=== PATIENT | male | born 1960 | race Caucasian/White ===

== ENCOUNTER 2022-04-02 15:50 | Inpatient (IN) | payer OTHER ==
[~2022-04-02] VITALS: Ht 180.3 cm; Wt 86.6 kg
[2022-04-02] MEDS ORDERED: BENZOCAINE/MENTHOL LOZENGE PO PRN (20:15)
[2022-04-02] MEDS ORDERED: POLYETHYLENE GLYCOL 3350 17 GM PACKET PO PRN (20:15)
[2022-04-02] MEDS: MELATONIN 5 MG TABLET PO SCH (21:00)
[2022-04-02] MEDS: SIMVASTATIN 20 MG TABLET PO SCH (22:12)
[2022-04-02] MEDS: ETHYL ALCOHOL 62% ANTISEPTIC NASAL SANITIZER 0.6 ML AMPUL NASAL SCH (22:12)
[2022-04-02] MEDS ORDERED: [UNRECOGNIZED DRUG - OTHER] IH PRN ×2 (22:15→22:45)
[2022-04-02 22:19] VITALS: BP 154/89
[2022-04-02] MEDS: ENOXAPARIN SODIUM 40 MG/0.4 ML PF SYRINGE SQ SCH (22:19)
[2022-04-02] MEDS: SENNA 187 MG TABLET PO SCH (22:19)
[2022-04-02] MEDS: MORPHINE SULFATE 15 MG IR TABLET PO PRN (22:19)
[2022-04-02] MEDS: DOCUSATE SODIUM 100 MG CAPSULE PO SCH (22:19)
[2022-04-02] MEDS: METHOCARBAMOL 500 MG TABLET PO SCH (22:19)
[2022-04-03] MEDS ORDERED: LISI-894 PO (06:21)
[2022-04-03] MEDS ORDERED: SIMV-260 PO (06:21)
[2022-04-03 07:14] LABS: BASOPHILS % (AUTO) 0.3 % (0.0-2.0); HEMATOCRIT 26.4 % (41-53); HEMOGLOBIN 8.7 g/dL (13.5-17.5); LYMPHOCYTES # (AUTO) 1.3 K/uL (1.0-4.8); LYMPHOCYTES % (AUTO) 11.8 % (22.0-44.0); MEAN CORPUSCULAR HEMOGLOBIN 30.4 pg (26.0-34.0); MEAN CORPUSCULAR HGB CONC 33.1 G/dL (31.0-37.0); MEAN CORPUSCULAR VOLUME 92 fL (80-100); MONOCYTES # (AUTO) 0.6 K/uL (0.1-1.0); MONOCYTES % (AUTO) 5.3 % (2.0-9.0); NEUTROPHILS # (AUTO) 8.3 K/uL (1.8-7.7); NEUTROPHILS % (AUTO) 78.6 % (40.0-70.0); PLATELET COUNT (AUTO) 560 K/uL (150-450); RED BLOOD CELL COUNT(AUTO) 2.87 MIL/uL (4.50-5.90); RED CELL DISTRIBUTION WIDTH 15.8 % (11.5-14.5)
[2022-04-03 07:43] LABS: ALANINE AMINOTRANSFERASE 102 U/L (12-78); ALKALINE PHOSPHATASE 235 U/L (46-116); ANION GAP 8 mmol/L (8-16); ASPARTATE AMINOTRANSFERASE 39 U/L (15-37); BILIRUBIN,TOTAL 0.4 mg/dL (0.1-1.0); CALCIUM, TOTAL 8.6 mg/dL (8.8-10.5); CARBON DIOXIDE 30 mmol/L (22-29); CHLORIDE 104 mmol/L (98-107); CREATININE 0.54 mg/dL (0.60-1.30); GLOMERULAR FILTR. RATE CALC > 60 mL/min (>60); GLUCOSE,RANDOM 105 mg/dL (70-110); POTASSIUM 3.8 mmol/L (3.5-5.1); SODIUM SERUM 142 mmol/L (136-145); TOTAL PROTEIN, SERUM 5.8 g/dL (6.4-8.2); UREA NITROGEN, BLOOD 12 mg/dL (7-18)
[2022-04-03 08:59] VITALS: BP 140/78
[2022-04-03] MEDS: MOXIFLOXACIN HCL 400 MG TABLET PO SCH (09:41)
[2022-04-03] MEDS: MORPHINE SULFATE 15 MG IR TABLET PO PRN ×2 (09:42→20:37)
[2022-04-03] MEDS: METHOCARBAMOL 500 MG TABLET PO SCH ×4 (09:42→20:33)
[2022-04-03] MEDS: DOCUSATE SODIUM 100 MG CAPSULE PO SCH ×2 (09:42→20:33)
[2022-04-03] MEDS: ETHYL ALCOHOL 62% ANTISEPTIC NASAL SANITIZER 0.6 ML AMPUL NASAL SCH ×2 (09:42→20:34)
[2022-04-03] MEDS: ENOXAPARIN SODIUM 40 MG/0.4 ML PF SYRINGE SQ SCH ×2 (09:43→20:34)
[2022-04-03] MEDS: COLD CREAM, SKIN EMOLLIENT 170 GM JAR TP SCH ×2 (09:43→20:34)
[2022-04-03] MEDS: LIDOCAINE 5% TRANSDERMAL PATCH TD SCH (09:44)
[2022-04-03] MEDS ORDERED: PNEUMOCOCCAL VACCINE POLYVALENT 0.5 ML VIAL [PPSV23] IM. ONE (17:15)
[2022-04-03 20:05] VITALS: BP 140/77
[2022-04-03] MEDS: SENNA 187 MG TABLET PO SCH (20:33)
[2022-04-03] MEDS: SIMVASTATIN 20 MG TABLET PO SCH (20:33)
[2022-04-03] MEDS: -LIDODERM PATCH NOTE- MISC SCH (20:39)
[2022-04-03] MEDS: MELATONIN 5 MG TABLET PO SCH (21:00)
[2022-04-04] MEDS: FAMOTIDINE 20 MG TABLET PO SCH (06:29)
[2022-04-04 08:30] VITALS: BP 137/81
[2022-04-04] MEDS: MOXIFLOXACIN HCL 400 MG TABLET PO SCH (09:13)
[2022-04-04] MEDS: ETHYL ALCOHOL 62% ANTISEPTIC NASAL SANITIZER 0.6 ML AMPUL NASAL SCH ×2 (09:13→20:08)
[2022-04-04] MEDS: DOCUSATE SODIUM 100 MG CAPSULE PO SCH ×2 (09:14→20:08)
[2022-04-04] MEDS: METHOCARBAMOL 500 MG TABLET PO SCH ×4 (09:15→20:09)
[2022-04-04] MEDS: ENOXAPARIN SODIUM 40 MG/0.4 ML PF SYRINGE SQ SCH (09:16)
[2022-04-04] MEDS: COLD CREAM, SKIN EMOLLIENT 170 GM JAR TP SCH ×2 (09:17→20:10)
[2022-04-04] MEDS: LIDOCAINE 5% TRANSDERMAL PATCH TD SCH (09:17)
[2022-04-04] MEDS: LISINOPRIL 10 MG TABLET PO SCH (15:53)
[2022-04-04] MEDS: FERROUS SULFATE 325 MG EC TABLET PO SCH (16:01)
[2022-04-04 20:09] VITALS: BP 140/80
[2022-04-04] MEDS: APIXABAN 5 MG TABLET PO SCH (20:09)
[2022-04-04] MEDS: SENNA 187 MG TABLET PO SCH (20:09)
[2022-04-04] MEDS: MORPHINE SULFATE 15 MG IR TABLET PO PRN (20:09)
[2022-04-04] MEDS: SIMVASTATIN 20 MG TABLET PO SCH (20:09)
[2022-04-04] MEDS: OXYGEN THERAPY IH SCH (20:15)
[2022-04-04] MEDS: [UNRECOGNIZED DRUG - OTHER] IH PRN (20:22)
[2022-04-04] MEDS: -LIDODERM PATCH NOTE- MISC SCH (21:23)
[2022-04-04] MEDS: MELATONIN 5 MG TABLET PO PRN (23:59)
[2022-04-05] MEDS: FAMOTIDINE 20 MG TABLET PO SCH (06:09)
[2022-04-05 06:51] LABS: BASOPHILS % (AUTO) 0.8 % (0.0-2.0); HEMATOCRIT 32.5 % (41-53); HEMOGLOBIN 10.5 g/dL (13.5-17.5); LYMPHOCYTES # (AUTO) 1.5 K/uL (1.0-4.8); LYMPHOCYTES % (AUTO) 16.8 % (22.0-44.0); MEAN CORPUSCULAR HEMOGLOBIN 29.7 pg (26.0-34.0); MEAN CORPUSCULAR HGB CONC 32.1 G/dL (31.0-37.0); MEAN CORPUSCULAR VOLUME 93 fL (80-100); MONOCYTES # (AUTO) 0.6 K/uL (0.1-1.0); MONOCYTES % (AUTO) 6.6 % (2.0-9.0); NEUTROPHILS # (AUTO) 6.7 K/uL (1.8-7.7); NEUTROPHILS % (AUTO) 72.8 % (40.0-70.0); PLATELET COUNT (AUTO) 640 K/uL (150-450); RED BLOOD CELL COUNT(AUTO) 3.52 MIL/uL (4.50-5.90); RED CELL DISTRIBUTION WIDTH 16.2 % (11.5-14.5)
[2022-04-05 07:05] LABS: INR 1.1 (0.9-1.1); PROTHROMBIN TIME 11.3 SEC (9.4-11.6)
[2022-04-05 07:12] LABS: ALANINE AMINOTRANSFERASE 89 U/L (12-78); ALBUMIN 2.6 g/dL (3.4-5.0); ALKALINE PHOSPHATASE 279 U/L (46-116); ANION GAP 3 mmol/L (8-16); ASPARTATE AMINOTRANSFERASE 30 U/L (15-37); BILIRUBIN,TOTAL 0.3 mg/dL (0.1-1.0); CARBON DIOXIDE 34 mmol/L (22-29); CHLORIDE 105 mmol/L (98-107); CREATININE 0.57 mg/dL (0.60-1.30); GLUCOSE,RANDOM 106 mg/dL (70-110); POTASSIUM 4.3 mmol/L (3.5-5.1); SODIUM SERUM 142 mmol/L (136-145); TOTAL PROTEIN, SERUM 6.7 g/dL (6.4-8.2); UREA NITROGEN, BLOOD 7 mg/dL (7-18)
[2022-04-05 07:15] LABS: GLOMERULAR FILTR. RATE CALC > 60 mL/min (>60)
[2022-04-05 08:10] VITALS: BP 128/76
[2022-04-05] MEDS: METHOCARBAMOL 500 MG TABLET PO SCH ×4 (08:38→20:10)
[2022-04-05] MEDS: MULTIVITAMINS WITH MINERALS, THERAPEUTIC TABLET PO SCH (08:38)
[2022-04-05] MEDS: LIDOCAINE 5% TRANSDERMAL PATCH TD SCH (08:38)
[2022-04-05] MEDS: MOXIFLOXACIN HCL 400 MG TABLET PO SCH (08:38)
[2022-04-05] MEDS: ETHYL ALCOHOL 62% ANTISEPTIC NASAL SANITIZER 0.6 ML AMPUL NASAL SCH ×2 (08:38→20:11)
[2022-04-05] MEDS: FERROUS SULFATE 325 MG EC TABLET PO SCH ×2 (08:38→17:35)
[2022-04-05] MEDS: DOCUSATE SODIUM 100 MG CAPSULE PO SCH ×2 (08:39→20:10)
[2022-04-05] MEDS: COLD CREAM, SKIN EMOLLIENT 170 GM JAR TP SCH ×2 (08:39→20:11)
[2022-04-05] MEDS: LISINOPRIL 10 MG TABLET PO SCH (08:39)
[2022-04-05] MEDS: APIXABAN 5 MG TABLET PO SCH ×2 (08:39→20:10)
[2022-04-05] MEDS: OXYGEN THERAPY IH SCH ×2 (08:40→20:19)
[2022-04-05] MEDS: ACETAMINOPHEN 325 MG TABLET PO PRN (08:44)
[2022-04-05] MEDS: LORATADINE 10 MG TABLET PO SCH (12:07)
[2022-04-05] MEDS: SENNA 187 MG TABLET PO SCH (20:10)
[2022-04-05] MEDS: SIMVASTATIN 20 MG TABLET PO SCH (20:10)
[2022-04-05 20:11] VITALS: BP 144/74
[2022-04-05] MEDS: MORPHINE SULFATE 15 MG IR TABLET PO PRN (20:11)
[2022-04-05] MEDS: [UNRECOGNIZED DRUG - OTHER] IH PRN (20:11)
[2022-04-05] MEDS: -LIDODERM PATCH NOTE- MISC SCH (20:11)
[2022-04-05] MEDS: MELATONIN 5 MG TABLET PO PRN (22:31)
[2022-04-06] MEDS: FAMOTIDINE 20 MG TABLET PO SCH (07:00)
[2022-04-06 08:05] VITALS: BP 129/77
[2022-04-06] MEDS: COLD CREAM, SKIN EMOLLIENT 170 GM JAR TP SCH ×2 (08:57→20:53)
[2022-04-06] MEDS: METHOCARBAMOL 500 MG TABLET PO SCH ×4 (08:58→20:35)
[2022-04-06] MEDS: LISINOPRIL 10 MG TABLET PO SCH (08:59)
[2022-04-06] MEDS: MULTIVITAMINS WITH MINERALS, THERAPEUTIC TABLET PO SCH (08:59)
[2022-04-06] MEDS: DOCUSATE SODIUM 100 MG CAPSULE PO SCH ×2 (08:59→20:35)
[2022-04-06] MEDS: FERROUS SULFATE 325 MG EC TABLET PO SCH ×2 (08:59→16:09)
[2022-04-06] MEDS: LORATADINE 10 MG TABLET PO SCH (08:59)
[2022-04-06] MEDS: MOXIFLOXACIN HCL 400 MG TABLET PO SCH (08:59)
[2022-04-06] MEDS: APIXABAN 5 MG TABLET PO SCH ×2 (08:59→20:36)
[2022-04-06] MEDS: LIDOCAINE 5% TRANSDERMAL PATCH TD SCH (09:00)
[2022-04-06] MEDS: ETHYL ALCOHOL 62% ANTISEPTIC NASAL SANITIZER 0.6 ML AMPUL NASAL SCH ×2 (09:01→20:36)
[2022-04-06] MEDS: OXYGEN THERAPY IH SCH ×2 (09:02→20:51)
[2022-04-06] MEDS: MORPHINE SULFATE 15 MG IR TABLET PO PRN ×2 (09:21→20:36)
[2022-04-06] MEDS: SENNA 187 MG TABLET PO SCH (20:35)
[2022-04-06] MEDS: SIMVASTATIN 20 MG TABLET PO SCH (20:35)
[2022-04-06 20:36] VITALS: BP 117/69
[2022-04-06] MEDS: -LIDODERM PATCH NOTE- MISC SCH (20:40)
[2022-04-06] MEDS: MELATONIN 5 MG TABLET PO PRN (23:06)
[2022-04-07] MEDS: MORPHINE SULFATE 15 MG IR TABLET PO PRN ×2 (03:11→20:02)
[2022-04-07] MEDS: FAMOTIDINE 20 MG TABLET PO SCH (06:16)
[2022-04-07 07:35] VITALS: BP 120/76
[2022-04-07] MEDS: OXYGEN THERAPY IH SCH ×2 (08:00→20:01)
[2022-04-07] MEDS: MOXIFLOXACIN HCL 400 MG TABLET PO SCH (08:29)
[2022-04-07] MEDS: FERROUS SULFATE 325 MG EC TABLET PO SCH ×2 (08:29→16:29)
[2022-04-07] MEDS: DOCUSATE SODIUM 100 MG CAPSULE PO SCH ×2 (08:29→20:03)
[2022-04-07] MEDS: LORATADINE 10 MG TABLET PO SCH (08:29)
[2022-04-07] MEDS: ETHYL ALCOHOL 62% ANTISEPTIC NASAL SANITIZER 0.6 ML AMPUL NASAL SCH ×2 (08:29→20:03)
[2022-04-07] MEDS: APIXABAN 5 MG TABLET PO SCH ×2 (08:30→20:04)
[2022-04-07] MEDS: MULTIVITAMINS WITH MINERALS, THERAPEUTIC TABLET PO SCH (08:30)
[2022-04-07] MEDS: LISINOPRIL 10 MG TABLET PO SCH (08:30)
[2022-04-07] MEDS: METHOCARBAMOL 500 MG TABLET PO SCH ×4 (08:30→20:03)
[2022-04-07] MEDS: COLD CREAM, SKIN EMOLLIENT 170 GM JAR TP SCH ×2 (08:31→20:03)
[2022-04-07] MEDS: LIDOCAINE 5% TRANSDERMAL PATCH TD SCH (08:31)
[2022-04-07 20:02] VITALS: BP 144/76
[2022-04-07] MEDS: SIMVASTATIN 20 MG TABLET PO SCH (20:03)
[2022-04-07] MEDS: SENNA 187 MG TABLET PO SCH (20:03)
[2022-04-07] MEDS: -LIDODERM PATCH NOTE- MISC SCH (20:04)
[2022-04-07] MEDS: MELATONIN 5 MG TABLET PO PRN (23:02)
[2022-04-08] MEDS ORDERED: METH-659 PO (01:14)
[2022-04-08] MEDS ORDERED: DOCU-385 PO (01:14)
[2022-04-08] MEDS ORDERED: APIX2.5T PO (01:14)
[2022-04-08] MEDS ORDERED: FERR325T27 PO (01:14)
[2022-04-08] MEDS ORDERED: LORA10TA7 PO (01:14)
[2022-04-08] MEDS ORDERED: [UNRECOGNIZED DRUG - CODE] PO (01:14)
[2022-04-08] MEDS ORDERED: MULT-1133 PO (01:14)
[2022-04-08] MEDS ORDERED: FAMO20 PO (01:14)
[2022-04-08] MEDS: FAMOTIDINE 20 MG TABLET PO SCH (06:18)
[2022-04-08] MEDS: FERROUS SULFATE 325 MG EC TABLET PO SCH ×2 (07:59→15:51)
[2022-04-08] MEDS: LORATADINE 10 MG TABLET PO SCH (08:00)
[2022-04-08] MEDS: METHOCARBAMOL 500 MG TABLET PO SCH ×4 (08:00→20:48)
[2022-04-08] MEDS: LISINOPRIL 10 MG TABLET PO SCH (08:00)
[2022-04-08] MEDS: APIXABAN 5 MG TABLET PO SCH ×2 (08:00→20:49)
[2022-04-08] MEDS: MOXIFLOXACIN HCL 400 MG TABLET PO SCH (08:00)
[2022-04-08] MEDS: DOCUSATE SODIUM 100 MG CAPSULE PO SCH ×2 (08:00→20:51)
[2022-04-08] MEDS: MULTIVITAMINS WITH MINERALS, THERAPEUTIC TABLET PO SCH (08:00)
[2022-04-08] MEDS: LIDOCAINE 5% TRANSDERMAL PATCH TD SCH (08:01)
[2022-04-08] MEDS: ETHYL ALCOHOL 62% ANTISEPTIC NASAL SANITIZER 0.6 ML AMPUL NASAL SCH ×2 (08:01→20:47)
[2022-04-08] MEDS: COLD CREAM, SKIN EMOLLIENT 170 GM JAR TP SCH ×2 (08:05→20:51)
[2022-04-08] MEDS: OXYGEN THERAPY IH SCH ×2 (08:05→20:46)
[2022-04-08 08:30] VITALS: BP 135/77
[2022-04-08] MEDS: SENNA 187 MG TABLET PO SCH (20:47)
[2022-04-08] MEDS: SIMVASTATIN 20 MG TABLET PO SCH (20:50)
[2022-04-08 21:02] VITALS: BP 123/77
[2022-04-08] MEDS: MORPHINE SULFATE 15 MG IR TABLET PO PRN (21:02)
[2022-04-08] MEDS: -LIDODERM PATCH NOTE- MISC SCH (21:11)
[2022-04-08] MEDS: MELATONIN 5 MG TABLET PO PRN (23:03)
[2022-04-09] MEDS: FAMOTIDINE 20 MG TABLET PO SCH (06:52)
[2022-04-09 07:45] VITALS: BP 136/75
[2022-04-09] MEDS: OXYGEN THERAPY IH SCH ×2 (08:00→20:00)
[2022-04-09] MEDS: FERROUS SULFATE 325 MG EC TABLET PO SCH ×2 (08:22→16:23)
[2022-04-09] MEDS: MOXIFLOXACIN HCL 400 MG TABLET PO SCH (08:23)
[2022-04-09] MEDS: ETHYL ALCOHOL 62% ANTISEPTIC NASAL SANITIZER 0.6 ML AMPUL NASAL SCH ×2 (08:23→20:53)
[2022-04-09] MEDS: LORATADINE 10 MG TABLET PO SCH (08:23)
[2022-04-09] MEDS: DOCUSATE SODIUM 100 MG CAPSULE PO SCH ×2 (08:24→20:54)
[2022-04-09] MEDS: ACETAMINOPHEN 325 MG TABLET PO PRN ×2 (08:24→20:57)
[2022-04-09] MEDS: MULTIVITAMINS WITH MINERALS, THERAPEUTIC TABLET PO SCH (08:25)
[2022-04-09] MEDS: METHOCARBAMOL 500 MG TABLET PO SCH ×4 (08:25→20:53)
[2022-04-09] MEDS: LISINOPRIL 10 MG TABLET PO SCH (08:25)
[2022-04-09] MEDS: LIDOCAINE 5% TRANSDERMAL PATCH TD SCH (08:26)
[2022-04-09] MEDS: COLD CREAM, SKIN EMOLLIENT 170 GM JAR TP SCH ×2 (08:26→20:55)
[2022-04-09] MEDS: APIXABAN 5 MG TABLET PO SCH ×2 (08:26→20:54)
[2022-04-09] MEDS ORDERED: METH-811 PO (09:36)
[2022-04-09] MEDS ORDERED: DOCU-385 PO (09:36)
[2022-04-09] MEDS ORDERED: MULT-1239 PO (09:36)
[2022-04-09] MEDS ORDERED: LISI-893 PO (09:36)
[2022-04-09] MEDS ORDERED: FERR325T27 PO (09:36)
[2022-04-09] MEDS ORDERED: -Lidoderm Patch Note- MISC (09:36)
[2022-04-09] MEDS ORDERED: SENN-187 PO (09:36)
[2022-04-09] MEDS ORDERED: FOLI-130 IH (09:36)
[2022-04-09] MEDS ORDERED: MOXI400T33 PO (09:36)
[2022-04-09] MEDS ORDERED: SIMV-43 PO (09:36)
[2022-04-09] MEDS ORDERED: FAMO20 PO (09:36)
[2022-04-09] MEDS ORDERED: ACET325T51 PO (09:36)
[2022-04-09] MEDS ORDERED: APIX5TAB PO (09:36)
[2022-04-09] MEDS ORDERED: MORP15T PO (09:36)
[2022-04-09] MEDS ORDERED: LORA10TA60 PO (09:36)
[2022-04-09] MEDS: SODIUM CHLORIDE 0.65% 44 ML NASAL SPRAY NASAL SCH ×2 (16:23→21:20)
[2022-04-09] MEDS: SENNA 187 MG TABLET PO SCH (20:53)
[2022-04-09] MEDS: SIMVASTATIN 20 MG TABLET PO SCH (20:54)
[2022-04-09 20:57] VITALS: BP 140/81
[2022-04-09] MEDS: MELATONIN 5 MG TABLET PO PRN (20:58)
[2022-04-09] MEDS: -LIDODERM PATCH NOTE- MISC SCH (21:23)
[2022-04-10] MEDS: FAMOTIDINE 20 MG TABLET PO SCH (06:42)
[2022-04-10 08:01] VITALS: BP 120/80
[2022-04-10] MEDS: METHOCARBAMOL 500 MG TABLET PO SCH (08:10)
[2022-04-10] MEDS: APIXABAN 5 MG TABLET PO SCH (08:10)
[2022-04-10] MEDS: MOXIFLOXACIN HCL 400 MG TABLET PO SCH (08:10)
[2022-04-10] MEDS: DOCUSATE SODIUM 100 MG CAPSULE PO SCH (08:10)
[2022-04-10] MEDS: MULTIVITAMINS WITH MINERALS, THERAPEUTIC TABLET PO SCH (08:11)
[2022-04-10] MEDS: FERROUS SULFATE 325 MG EC TABLET PO SCH (08:11)
[2022-04-10] MEDS: LISINOPRIL 10 MG TABLET PO SCH (08:11)
[2022-04-10] MEDS: ETHYL ALCOHOL 62% ANTISEPTIC NASAL SANITIZER 0.6 ML AMPUL NASAL SCH (08:11)
[2022-04-10] MEDS: LORATADINE 10 MG TABLET PO SCH (08:15)
[2022-04-10] MEDS: LIDOCAINE 5% TRANSDERMAL PATCH TD SCH (08:16)
[2022-04-10] MEDS: OXYGEN THERAPY IH SCH (08:25)
[2022-04-10] MEDS: COLD CREAM, SKIN EMOLLIENT 170 GM JAR TP SCH (08:27)
[2022-04-10] MEDS: SODIUM CHLORIDE 0.65% 44 ML NASAL SPRAY NASAL SCH (08:27)
[2022-04-10 08:47] LABS: BASOPHILS % (AUTO) 0.9 % (0.0-2.0); EOSINOPHILS % (AUTO) 2.1 % (1.0-6.0); HEMATOCRIT 33.1 % (41-53); HEMOGLOBIN 10.9 g/dL (13.5-17.5); LYMPHOCYTES # (AUTO) 1.1 K/uL (1.0-4.8); LYMPHOCYTES % (AUTO) 14.3 % (22.0-44.0); MEAN CORPUSCULAR HEMOGLOBIN 30.5 pg (26.0-34.0); MEAN CORPUSCULAR HGB CONC 32.8 G/dL (31.0-37.0); MEAN CORPUSCULAR VOLUME 93 fL (80-100); MONOCYTES # (AUTO) 0.4 K/uL (0.1-1.0); MONOCYTES % (AUTO) 5.4 % (2.0-9.0); NEUTROPHILS # (AUTO) 5.9 K/uL (1.8-7.7); NEUTROPHILS % (AUTO) 77.3 % (40.0-70.0); PLATELET COUNT (AUTO) 386 K/uL (150-450); RED BLOOD CELL COUNT(AUTO) 3.57 MIL/uL (4.50-5.90); RED CELL DISTRIBUTION WIDTH 16.4 % (11.5-14.5)
[2022-04-10 09:01] LABS: ALANINE AMINOTRANSFERASE 59 U/L (12-78); ALBUMIN 2.8 g/dL (3.4-5.0); ALKALINE PHOSPHATASE 251 U/L (46-116); ANION GAP 1 mmol/L (8-16); ASPARTATE AMINOTRANSFERASE 21 U/L (15-37); BILIRUBIN,TOTAL 0.4 mg/dL (0.1-1.0); CALCIUM, TOTAL 8.8 mg/dL (8.8-10.5); CARBON DIOXIDE 29 mmol/L (22-29); CHLORIDE 102 mmol/L (98-107); CREATININE 0.61 mg/dL (0.60-1.30); GLOMERULAR FILTR. RATE CALC > 60 mL/min (>60); GLUCOSE,RANDOM 122 mg/dL (70-110); POTASSIUM 3.7 mmol/L (3.5-5.1); SODIUM SERUM 132 mmol/L (136-145); TOTAL PROTEIN, SERUM 6.7 g/dL (6.4-8.2); UREA NITROGEN, BLOOD 9 mg/dL (7-18)
[2022-04-10] MEDS: ACETAMINOPHEN 325 MG TABLET PO PRN (10:18)
[2022-04-11] MEDS ORDERED: APIXABAN 5 MG TABLET PO SCH (21:00)
== END 2022-04-10 11:40 | disposition home or self-care (01) | DRG 551 ==
LOC: 2WR 18:00
PROVIDERS: ADMIT Physical Medicine & Rehabilitation; ATTEND Physical Medicine & Rehabilitation
DX: S12.100A Unspecified displaced fracture of second cervical vertebra, initial encounter for closed fracture (principal); J15.0 Pneumonia due to Klebsiella pneumoniae; J96.90 Respiratory failure, unspecified, unspecified whether with hypoxia or hypercapnia; S22.42XA Multiple fractures of ribs, left side, initial encounter for closed fracture; S22.20XA Unspecified fracture of sternum, initial encounter for closed fracture; D68.51 Activated protein C resistance; N39.0 Urinary tract infection, site not specified; S36.113A Laceration of liver, unspecified degree, initial encounter; S36.039A Unspecified laceration of spleen, initial encounter; D75.839 Thrombocytosis, unspecified; E78.5 Hyperlipidemia, unspecified; I10 Essential (primary) hypertension; K21.9 Gastro-esophageal reflux disease without esophagitis; K59.00 Constipation, unspecified; N40.0 Benign prostatic hyperplasia without lower urinary tract symptoms; R13.10 Dysphagia, unspecified; S42.122A Displaced fracture of acromial process, left shoulder, initial encounter for closed fracture; S43.102A Unspecified dislocation of left acromioclavicular joint, initial encounter; D53.9 Nutritional anemia, unspecified; R40.2410 Glasgow coma scale score 13-15, unspecified time; Z90.49 Acquired absence of other specified parts of digestive tract; Z86.718 Personal history of other venous thrombosis and embolism; Z86.16 Personal history of COVID-19; Z82.5 Family history of asthma and other chronic lower respiratory diseases; Z82.49 Family history of ischemic heart disease and other diseases of the circulatory system; Z82.3 Family history of stroke; Z79.01 Long term (current) use of anticoagulants; V86.55XA Driver of 3- or 4- wheeled all-terrain vehicle (ATV) injured in nontraffic accident, initial encounter; Y93.89 Activity, other specified; Y92.89 Other specified places as the place of occurrence of the external cause; Y99.8 Other external cause status; Z68.26 Body mass index [BMI] 26.0-26.9, adult
CPT/HCPCS: 71045; 72020; 72100; 73200; 74230; 80053; 85025; 85610; 87081; 92507; 92526; 92610; 92611; 93970; 93971; 97110; 97116; 97150; 97163; 97166; 97530; 97535; 99366; G0238; J1650; Q9967; 36415-L1; 36415-TC